=== PATIENT | male | born 1950 | race Caucasian/White ===

== ENCOUNTER → 2016-09-24 | Outpatient (CLI) | payer OTHER ==
--- NOTE | 2016-09-25 13:19 | Diagnostic Imaging Report ---
EXAMINATION: PET-CT. TECHNIQUE: Serum glucose level at the time of the study is: 107 mg/dL. 13.8 mCi of FDG was administered intravenously followed by obtaining PET images with corresponding noncontrast CT scan images. The CT scan was performed for anatomic correlation and attenuation correction and was not performed according to the diagnostic protocol of the areas covered. The scan was performed from the head to mid thighs. INDICATION: Gastroesophageal carcinoma. FINDINGS: FDG uptake in the brain appears symmetric. There is no suspicious hypermetabolism seen in the neck. Nonspecific mild increased FDG uptake in the oropharynx and soft palate in a nonfocal fashion is likely on an inflammatory basis. There is an intensely hypermetabolic area of thickening centered around the gastroesophageal junction with maximum SUV of 10 which would correspond with the provided history of gastroesophageal junction cancer. There is otherwise no hypermetabolic mass or enlarged lymph node seen in the chest. In the abdomen and pelvis, another region of hypermetabolism in the stomach is seen in the antrum of the stomach with maximum SUV of 7. No definitive correlating mass is seen on PET/CT. Correlate with endoscopic findings. If the antrum was normal on endoscopy, then this is probably excretion of the tracer into the lumen and physiologic activity related. The urinary tract expected excretion is seen as well as mild nonfocal activity in the bowel. There is no hypermetabolic enlarged lymph node around the stomach or in the retroperitoneum. No hypermetabolic mass in the osseous structures. IMPRESSION: 1. Intense hypermetabolism at the area of thickening around the gastroesophageal junction is compatible with the provided history of GE junction cancer. 2. Indeterminate moderate hypermetabolism in the gastric antrum. Correlate with endoscopic findings. If the antrum was normal on endoscopy, then this would be favored to be related to physiologic activity and excretion. 3. No evidence of lymph node spread or distant metastasis. Dictated by: Dictated on workstation # [id number]
== END ==
LOC: CARD 09:02
PROVIDERS: ATTEND Internal Medicine Hematology & Oncology
DX: C16.0 Malignant neoplasm of cardia (principal)

== ENCOUNTER 2016-11-27 12:30 | Outpatient (RCR) | payer MEDICARE, OTHER | END 2017-01-13 | disposition home or self-care (01) | LOC: ONC 12:30 | PROVIDERS: ATTEND Radiology Radiation Oncology | DX: Z51.0 Encounter for antineoplastic radiation therapy (principal); C15.5 Malignant neoplasm of lower third of esophagus | CPT/HCPCS: 77301; 77332; 77334; 77336; 77338; 77386; 77470; 99214 ==